=== PATIENT | female | born 1990 | race Caucasian/White ===

== ENCOUNTER 2018-04-22 07:12 | Inpatient (IN) | payer OTHER ==
[~2018-04-22] VITALS: Ht 177.8 cm; Wt 101.2 kg
[2018-04-22] VITALS (44 sets, daily range): BP systolic 15–139; BP diastolic 55–92
[~2018-04-22 07:12] MED LIST: DCS100C PO; HYDR-3720 PO; IBP800T PO; OXYC1TAB12 PO; PREN1TAB39 PO
[2018-04-22] MEDS ORDERED: OXYTOCIN/NORMAL SALINE 500 ML IV SCH ×2 (07:14→15:16)
[2018-04-22] MEDS ORDERED: D5 LR IV SOLUTION 1,000 ML IV SCH (07:14)
--- NOTE | 2018-04-22 07:23 | History & Physical ---
History and Physical Date Seen by Provider: Apr 22, 2018 Time Seen by Provider: 07:20 This patient is a 27-year-old A1 white female seen in my clinic yesterday and found with a DONALD of 47. Week prior to been 65. She is admitted now for induction of labor due to this oligohydramnios. She denies ruptured membranes or bleeding. She's had no problems with his to date. GBS culture was negative after 35 weeks gestation. Allergies are none Medications are vitamins Medical social and surgical histories are per the antepartum record HEENT exam is normal Neck is supple no lymphadenopathy no thyromegaly Abdomen is gravid soft nontender nondistended Extremities show clubbing or cyanosis. There is no Homans sign. Exam in clinic showed a cervix 3+ centimeters dilated over 50 percent effaced - 1 station or lower soft and intermediate and given a Hearn score of 9 Assessment and plan term at 37+ weeks' gestation with progressively decreasing DONALD to the point now of oligohydramnios with an DONALD yesterday and 47. Plan is for admission for induction of labor with Pitocin. We anticipate a vaginal delivery but plans in preparation would be in place for if needed. 37+ week gestation with oligohydramnios Allergies and Home Medications Allergies Coded Allergies: No Known Drug Allergies (Unverified , 07/28/11) Home Medications Docusate Sodium 100 Mg Cap, 100 MG PO BID Prescribed by: DENISE WILLIAMSON on 02/01/15 0740 Ibuprofen 800 Mg Tab, 800 MG PO Q6H Prescribed by: DENISE WILLIAMSON on 02/01/15 0740 Oxycodone Hcl/Acetaminophen 1 Tab Tablet, 1-2 TAB PO Q4H PRN for PAIN Prescribed by: DENISE WILLIAMSON on 02/01/15 0740 Vits W-Ca,Fe,Fa(<1MG) 1 Each Tablet, 1 EACH PO DAILY, (Reported) Patient Home Medication List Home Medication List Reviewed: Yes DENISE ARREOLA MD Apr 22, 2018 07:23
--- NOTE | 2018-04-22 07:32 | OB Bishop Score ---
Hearn Score 9 DENISE ARREOLA MD Apr 22, 2018 7:32 am
[2018-04-22 08:00] LABS: BASOPHILS % (AUTO) 0 % (0-10); EOSINOPHILS % (AUTO) 1 % (0-10); HEMATOCRIT 35 % (35-52); LYMPHOCYTES # (AUTO) 1.5 X 10^3 (1.0-4.0); LYMPHOCYTES % (AUTO) 27 % (12-44); MEAN CORPUSCULAR HEMOGLOBIN 32 PG (25-34); MEAN CORPUSCULAR HGB CONC 35 G/DL (32-36); MEAN CORPUSCULAR VOLUME 93 FL (80-99); MEAN PLATELET VOLUME 10.3 FL (7.4-10.4); MONOCYTES # (AUTO) 0.4 X 10^3 (0.0-1.0); MONOCYTES % (AUTO) 6 % (0-12); NEUTROPHILS # (AUTO) 3.6 X 10^3 (1.8-7.8); NEUTROPHILS % (AUTO) 66 % (42-75); PLATELET COUNT 196 10^3/uL (130-400); RED BLOOD COUNT 3.71 10^6/uL (4.35-5.85); RED CELL DISTRIBUTION WIDTH 12.6 % (10.0-14.5); WHITE BLOOD COUNT 5.5 10^3/uL (4.3-11.0)
[2018-04-22] MEDS ORDERED: SUFENTA 0.6MCG/ML BUPIVA 0.125 100 ML ONE (11:37)
[2018-04-22] MEDS ORDERED: BUPIVACAINE 0.25% 30 ML (SENSORCAINE) VIAL ONE (12:08)
[2018-04-22] MEDS ORDERED: fentaNYL INJECTION 100 MCG/2 ML AMP ONE (12:08)
[2018-04-22] MEDS ORDERED: LACTATED RINGERS 1,000 ML IV ONE (13:36)
[2018-04-22] MEDS ORDERED: NALOXONE 0.4 MG/ML 1 ML (NARCAN) VIAL IV PRN (13:45)
[2018-04-22] MEDS ORDERED: EPIDURAL (SUFENTA 0.6MCG/ML BUPIVA 0.125%) 100 ML BAG EPI SCH (13:45)
[2018-04-22] MEDS ORDERED: ONDANSETRON 4 MG/2 ML (SDV) Z0FRAN IV PRN (13:45)
[2018-04-22] MEDS ORDERED: CATHETER FLUSH 10 ML SYR IV PRN (13:45)
[2018-04-22] MEDS ORDERED: diphenhydrAMINE 50 MG/ML INJ (BENADRYL) IV PRN (13:45)
[2018-04-22] MEDS ORDERED: LIDOCAINE/EPI 2% 1:200,00 (XYLOCAINE) 10 ML VIAL ONE (14:21)
[2018-04-22] MEDS ORDERED: TETANUS,DIPTH,PERTUSS P/F (BOOSTRIX) 0.5 ML VIAL IM ONE (15:30)
[2018-04-22] MEDS ORDERED: oxyCODONE/APAP 5/325MG (PERCOCET 5) TABLET PO PRN (15:30)
[2018-04-22] MEDS ORDERED: BENZOCAINE/MENTHOL (DERMOPLAST) 56 ML CAN TP PRN (15:30)
[2018-04-22] MEDS: KETOROLAC 30 MG/ML VIAL IV SCH ×2 (16:34→21:30)
[2018-04-22] MEDS: DOCUSATE SODIUM 100 MG (COLACE) CAP PO SCH (20:17)
--- NOTE | 2018-04-22 21:10 | OPERATIVE REPORT ---
DATE OF SERVICE: 04/22/2018 The patient delivered by term spontaneous vaginal delivery, a viable male infant with Apgars of 8 and 9 at 1 and 5 minutes of life respectively, weight 6 pounds 1 ounce, time of 14:38 and a cord blood arterial pH 7.26. The infant delivered over an intact perineum under epidural analgesia. There was a nuchal cord that was easily released. The infant was dried and stimulated. When the cord was pulseless. It was doubly clamped, father cut the cord, the baby was passed to mom's abdomen. The was quickly pink, moved all extremities, had excellent tone and reflexes and a lusty cry. The placenta delivered spontaneously Norman. It was normal with a 3-vessel cord. The cervix, vagina, rectum, perineum were examined and found intact. Sponge and needle counts were correct on completion of delivery. The estimated blood loss was around 100 mL. The patient tolerated the delivery well and remained in the LDR for recovery. The baby remained with the mom. Job ID: [id number] DocumentID: [id number] Dictated Date: 04/22/2018 14:51:12 Microbiology Laboratory Manager Date: 04/22/2018 21:09:48 Dictated By: DENISE ARREOLA MD MTDD
--- NOTE | 2018-04-22 22:17 | Progress Note-Standard ---
Standard Progress Note Progress Notes/Assess & Plan Date Seen by Provider: Apr 22, 2018 Time Seen by Provider: 22:16 Progress/Assessment & Plan No C/O VSS AFB Vital Signs 04/22/18 20:15 Temp 98.5 Pulse 67 Resp 18 B/P (MAP) 116/76 (89) Pulse Ox 98 O2 Delivery Room Air FF below UMB / NT Ext - no c/c/e no homans A/P PPD <1 doing well routine care Final Diagnosis TSDENISE CRUZ MD Apr 22, 2018 10:17 pm
[2018-04-22] MEDS ORDERED: DOCU100C37 PO (22:19)
[2018-04-22] MEDS ORDERED: IBUP-1780 PO (22:19)
[2018-04-22] MEDS ORDERED: OXYC-471 PO (22:19)
--- NOTE | 2018-04-22 22:20 | Discharge Instructions ---
Discharge Instructions Discharge Medications New, Converted or Re-Newed RX: RX on Chart Patient Instructions Patient Instructions: as directed Return to The Hospital For: as directed Activity & Diet Discharge Diet: No Restrictions Activity as Tolerated: No Orders-Post D/C & Referrals Follow Up Appt: Call to make follow up appt. for patient in 4 weeks. Activity Per routine post vaginal delivery instructions. Diet as tolerated Patient may shower or tub bathe as desired. DENISE ARREOLA MD Apr 22, 2018 10:20 pm
[2018-04-22] MEDS ORDERED: IBUPROFEN 800 MG (MOTRIN) TAB PO ONE (22:26)
[2018-04-22] MEDS: IBUPROFEN 800 MG (MOTRIN) TAB PO SCH (22:38)
[2018-04-23 01:00] VITALS: BP 114/68
[2018-04-23] MEDS ORDERED: IBUPROFEN 800 MG (MOTRIN) TAB PO ONE ×2 (04:24→10:36)
[2018-04-23] MEDS: IBUPROFEN 800 MG (MOTRIN) TAB PO SCH ×4 (04:30→21:42)
[2018-04-23 04:31] VITALS: BP 121/74
[2018-04-23 09:00] VITALS: BP 115/62
--- NOTE | 2018-04-23 10:11 | Anesthesia-Regional Post-Op ---
Regional Patient Condition Mental Status: Alert, Oriented x3 Circulation: Same as Pre-Op Headache: Absent Sensation: Full Recovery Motor Block: Absent Post Op Complications Complications None Follow Up Care/Instructions Patient Instructions None needed. Anesthesia/Patient Condition Patient is doing well, no complaints, stable vital signs, no apparent adverse anesthesia problems. No complications reported per nursing. BROOKE WHITE CRNA Apr 23, 2018 10:11
[2018-04-23] MEDS: DOCUSATE SODIUM 100 MG (COLACE) CAP PO SCH ×2 (10:44→21:41)
[2018-04-23 13:15] VITALS: BP 108/67
[2018-04-23] MEDS ORDERED: DIBUCAINE (NUPERCAINAL) 1% OINT 30 GM ONE (16:35)
[2018-04-23] MEDS ORDERED: WITCH HAZEL(TUCKS) 40 EA JAR ONE (16:35)
[2018-04-23 16:45] VITALS: BP 113/65
[2018-04-23] MEDS ORDERED: WITCH HAZEL(TUCKS) 40 EA JAR TOP PRN ×2 (16:45→17:00)
[2018-04-23] MEDS ORDERED: DIBUCAINE (NUPERCAINAL) 1% OINT 30 GM TOP PRN (16:45)
--- NOTE | 2018-04-23 20:28 | Progress Note-Standard ---
Standard Progress Note Progress Notes/Assess & Plan Date Seen by Provider: Apr 23, 2018 Time Seen by Provider: 20:27 Progress/Assessment & Plan No C/O VSS AFB Vital Signs 04/22/18 20:15 Temp 98.5 Pulse 67 Resp 18 B/P (MAP) 116/76 (89) Pulse Ox 98 O2 Delivery Room Air FF below UMB / NT Ext - no c/c/e no homans A/P PPD <1 doing well routine care 04/23/18 No C/O VSS AFB Vital Signs Vital Signs Date Time Temp Pulse Resp B/P (MAP) Pulse Ox O2 Delivery O2 Flow Rate FiO2 04/23/18 16:45 98.2 72 18 113/65 (81) 98 Room Air 04/23/18 13:15 97.8 69 18 108/67 (81) 97 Room Air 04/23/18 09:00 97.6 64 18 115/62 (79) 98 Room Air 04/23/18 04:31 97.6 85 18 121/74 (90) 98 Room Air 04/23/18 01:00 97.9 61 18 114/68 (83) 98 Room Air I & O 04/23/18 07:00 Intake Total 2500 ml Output Total 300 ml Balance 2200 ml 04/22/18 20:15 Temp 98.5 Pulse 67 Resp 18 B/P (MAP) 116/76 (89) Pulse Ox 98 O2 Delivery Room Air FF below UMB / NT Ext - no c/c/e no homans A/P PPD 1 doing well routine care with home tomorrow. DENISE ARREOLA MD Apr 23, 2018 8:28 pm
[2018-04-23 21:40] VITALS: BP 117/75
[2018-04-24 04:15] VITALS: BP 110/71
[2018-04-24] MEDS: IBUPROFEN 800 MG (MOTRIN) TAB PO SCH ×2 (04:23→09:33)
--- NOTE | 2018-04-24 06:45 | Progress Note-Standard ---
Standard Progress Note Progress Notes/Assess & Plan Date Seen by Provider: Apr 24, 2018 Time Seen by Provider: 06:44 Progress/Assessment & Plan No C/O VSS AFB Vital Signs 04/22/18 20:15 Temp 98.5 Pulse 67 Resp 18 B/P (MAP) 116/76 (89) Pulse Ox 98 O2 Delivery Room Air FF below UMB / NT Ext - no c/c/e no homans A/P PPD <1 doing well routine care 04/23/18 No C/O VSS AFB Vital Signs Vital Signs Date Time Temp Pulse Resp B/P (MAP) Pulse Ox O2 Delivery O2 Flow Rate FiO2 04/23/18 16:45 98.2 72 18 113/65 (81) 98 Room Air 04/23/18 13:15 97.8 69 18 108/67 (81) 97 Room Air 04/23/18 09:00 97.6 64 18 115/62 (79) 98 Room Air 04/23/18 04:31 97.6 85 18 121/74 (90) 98 Room Air 04/23/18 01:00 97.9 61 18 114/68 (83) 98 Room Air I & O 04/23/18 07:00 Intake Total 2500 ml Output Total 300 ml Balance 2200 ml 04/22/18 20:15 Temp 98.5 Pulse 67 Resp 18 B/P (MAP) 116/76 (89) Pulse Ox 98 O2 Delivery Room Air FF below UMB / NT Ext - no c/c/e no homans A/P PPD 1 doing well routine care with home tomorrow. April 24, 2015 Patient is without complaint. She is ambulating, voiding, tolerating by mouth well, has good pain control. Patient denies chest pain, denies shortness of breath, denies nausea vomiting, and denies headache. Patient is ready for discharge home. Vital Signs Date Time Temp Pulse Resp B/P (MAP) Pulse Ox O2 Delivery O2 Flow Rate FiO2 04/24/18 04:15 96.5 64 18 110/71 (84) Room Air 04/23/18 21:40 96.9 75 18 117/75 (89) 99 Room Air 04/23/18 16:45 98.2 72 18 113/65 (81) 98 Room Air 04/23/18 13:15 97.8 69 18 108/67 (81) 97 Room Air 04/23/18 09:00 97.6 64 18 115/62 (79) 98 Room Air Vital signs are stable. Patient is afebrile. Fundus is firm below the umbilicus and nontender. Extremities show clubbing cyanosis. There is no Homans sign. There is some pretibial pitting edema that is normal. Assessment and plan day number 2 status post term spontaneous vaginal delivery doing well. Plan is for discharge home with follow-up in clinic Final Diagnosis T DENISE MURRELL MD Apr 24, 2018 6:45 am
[2018-04-24 07:22] VITALS: BP 105/71
[2018-04-24] MEDS: DOCUSATE SODIUM 100 MG (COLACE) CAP PO SCH (09:33)
[2018-04-24 09:50] VITALS: BP 105/71
== END 2018-04-24 09:50 | disposition home or self-care (01) | DRG 775 ==
LOC: LDRP 07:12
PROVIDERS: ADMIT Obstetrics & Gynecology; ATTEND Obstetrics & Gynecology
PROC: 10E0XZZ Delivery of Products of Conception, External Approach (ICD-10-PCS; principal; 2018-04-22)
PROC: 3E033VJ Introduction of Other Hormone into Peripheral Vein, Percutaneous Approach (ICD-10-PCS; 2018-04-22)
DX: O41.03X0 Oligohydramnios, third trimester, not applicable or unspecified (principal); O69.81X0 Labor and delivery complicated by cord around neck, without compression, not applicable or unspecified; Z37.0 Single live birth; Z3A.37 37 weeks gestation of pregnancy
CPT/HCPCS: 36415; 85025; 86850; 86900; 86901; 88307

== ENCOUNTER 2020-09-12 16:20 | Outpatient (CLI) | payer OTHER ==
[~2020-09-12] VITALS: Ht 177.8 cm; Wt 96.5 kg
[~2020-09-12 16:20] MED LIST changes: +DOCU100C37 PO; +IBUP-1780 PO; +OXYC-471 PO
--- NOTE | 2020-09-12 16:39 | NUR ---
DASIA DE LA CRUZ presented to unit via ambulation from ED with c/o increased vaginal discharge. Pt. weighed, gowned, voided, and to bed. EFHM and TOCO applied, VS taken. Pt. oriented to bed controls, call light, TV, heat, and A/C controls.
[2020-09-12 16:50] VITALS: BP 114/65
[2020-09-12 16:50] LABS: BILIRUBIN,URINE NEGATIVE (NEGATIVE); CLARITY,URINE SL CLOUDY; COLOR,URINE YELLOW; GLUCOSE, URINE (UA) NEGATIVE (NEGATIVE); KETONES,URINE NEGATIVE (NEGATIVE); LEUKOCYTE ESTERASE ,URINE 1+ (NEGATIVE); NITRITE,URINE NEGATIVE (NEGATIVE); PH,URINE 7.5 (5-9); PROTEIN,URINE NEGATIVE (NEGATIVE)
[2020-09-12 16:57] LABS: BACTERIA,URINE FEW /HPF; RBC,URINE RARE /HPF; WBC,URINE 0-2 /HPF
--- NOTE | 2020-09-12 16:58 | NUR ---
Nitrazine negative. no active leaking of fluid noted. SVE closed, thick, and posterior. white vaginal discharge noted on glove. pt reports having increased vaginal discharge x2 months. wears panty liner, with no D/C @ noc. denies vaginal itching, odor or bleeding. reports +FM. denies contractions @ time.
--- NOTE | 2020-09-12 17:03 | NUR ---
was called r/t admission c/o's. order received for wet prep.
--- NOTE | 2020-09-12 17:07 | NUR ---
wet prep specimen labeled and sent to lab. Addendum: 09/12/20 at 1725 by DARIO PICKARD RN correction to above note: specimen collected, labeled and sent to lab.
--- NOTE | 2020-09-12 17:13 | NUR ---
monitors dc'd. monitor tracing reviewed. no ctx's noted. FHR 140's. variability appropriate for gestation.
--- NOTE | 2020-09-12 17:30 | NUR ---
was called with wet prep results. dismissal orders received.
--- NOTE | 2020-09-12 17:45 | NUR ---
dismissal instructions given, verbalizes understanding. signature page signed, placed on chart.
--- NOTE | 2020-09-12 17:50 | NUR ---
pt ambulated to private vehicle with no sx's of distress noted.
--- NOTE | 2020-09-13 08:41 | Physician Query-Final Dx ---
SILKE TOLBERT 09/13/20 0841: Clinic Account Progress/Dx Physician Query: Please give diagnosis Please include # weeks gestation Date of Service Sep 12, 2020 at 16:20 DENISE ARREOLA MD 09/14/20 1046: Clinic Account Progress/Dx DIAGNOSIS: Diagnosis 24 weeks gestation with vaginal discharge Rupture membranes not confirmed SILKE TOLBERT Sep 13, 2020 08:41 DENISE ARREOLA MD Sep 14, 2020 10:46
== END 2020-09-12 17:50 | disposition home or self-care (01) ==
LOC: WSo 16:20 → LDRP 16:20 → WSo 17:50
PROVIDERS: ATTEND Obstetrics & Gynecology
DX: O26.892 Other specified pregnancy related conditions, second trimester (principal); Z3A.24 24 weeks gestation of pregnancy
CPT/HCPCS: 81000; 87088; 87210; 99214

== ENCOUNTER 2020-12-25 06:54 | Inpatient (IN) | payer OTHER ==
[~2020-12-25] VITALS: Ht 177.8 cm; Wt 106.1 kg
[2020-12-25] VITALS (34 sets, daily range): BP systolic 98–141; BP diastolic 56–84
--- NOTE | 2020-12-25 07:10 | NUR ---
DASIA DE LA CRUZ presented to unit via ambulatory from home, accompanied by self, with c/o LEAKING FLUIDS. DASIA DE LA CRUZ weighed, gowned, voided, and to bed. EFHM and TOCO applied, VS taken. DASIA DE LA CRUZ oriented to bed controls, call light, TV, heat, and A/C controls.
--- NOTE | 2020-12-25 08:16 | History & Physical ---
History and Physical Date Seen by Provider: Dec 25, 2020 Time Seen by Provider: 08:14 This patient is a 30-year-old 2 para 1 at 39 weeks gestation who presents with complaint of leaking fluid. She reports awakening in bed with soaked underwear. She she has continued to have some slight leakage as well she is starting to have contractions that had not been present before. She does feel baby move and her GBS culture was negative. She has had no problems with this . Allergies are none Medications are vitamins Medical social and surgical history is all per the antepartum record HEENT exam is normal Neck is supple no lymphadenopathy no thyromegaly Abdomen is gravid soft nontender nondistended Extremities show no clubbing or cyanosis. There is no Homans' sign. Pelvic exam yesterday in clinic showed a cervix almost 3 cm dilated 50% effaced -1 station vertex presentation recheck exam is pending Assessment and plan 39 weeks gestation with suspicion for contained rupture membranes. Patient is having occasional contraction we will start IV fluids and and his patient expectantly in anticipation of the vaginal delivery today 39-week gestation with PROM and early labor Allergies and Home Medications Allergies Coded Allergies: No Known Drug Allergies (Unverified , 07/28/11) Home Medications Vits W-Ca,Fe,Fa(<1MG) 1 Each Tablet, 1 EACH PO DAILY, (Reported) Patient Home Medication List Home Medication List Reviewed: Yes DENISE ARREOLA MD Dec 25, 2020 08:16
[2020-12-25] MEDS ORDERED: D5 LR IV SOLUTION 1,000 ML IV SCH (08:30)
[2020-12-25] MEDS ORDERED: OXYTOCIN PRE-MIX DRIP 500 ML IV SCH ×2 (08:30→14:15)
[2020-12-25 08:48] LABS: BASOPHILS % (AUTO) 0 % (0-10); EOSINOPHILS % (AUTO) 1 % (0-10); HEMATOCRIT 33 % (35-52); HEMOGLOBIN 11.2 g/dL (11.5-16.0); LYMPHOCYTES # (AUTO) 1.3 10^3/uL (1.0-4.0); LYMPHOCYTES % (AUTO) 22 % (12-44); MEAN CORPUSCULAR HEMOGLOBIN 32 pg (25-34); MEAN CORPUSCULAR HGB CONC 34 g/dL (32-36); MEAN CORPUSCULAR VOLUME 94 fL (80-99); MEAN PLATELET VOLUME 9.9 fL (9.0-12.2); MONOCYTES # (AUTO) 0.4 10^3/uL (0.0-1.0); MONOCYTES % (AUTO) 6 % (0-12); NEUTROPHILS # (AUTO) 4.1 10^3/uL (1.8-7.8); NEUTROPHILS % (AUTO) 70 % (42-75); PLATELET COUNT 181 10^3/uL (130-400); WHITE BLOOD COUNT 5.9 10^3/uL (4.3-11.0)
[2020-12-25] MEDS ORDERED: fentaNYL 2 mcg/ml BUPIVA 0.125 100 ML ONE (10:12)
[2020-12-25] MEDS ORDERED: METOCLOPRAMIDE INJ 10 MG/2 ML (REGLAN) IV PRN (12:30)
[2020-12-25] MEDS ORDERED: diphenhydrAMINE 50 MG/ML INJ (BENADRYL) IV PRN (12:30)
[2020-12-25] MEDS ORDERED: LACTATED RINGERS 1,000 ML IV SCH (12:30)
[2020-12-25] MEDS ORDERED: EPIDURAL (fentaNYL 2 MCG/ML BUPIVA 0.125%)100 ML BAG EPI SCH (12:30)
[2020-12-25] MEDS ORDERED: ONDANSETRON 4 MG/2 ML (SDV) Z0FRAN IV PRN (12:30)
[2020-12-25] MEDS ORDERED: NALOXONE 0.4 MG/ML 1 ML (NARCAN) VIAL IV PRN ×2 (12:30)
[2020-12-25] MEDS ORDERED: LIDOCAINE/EPI 2% 1:200,00 (XYLOCAINE) 10 ML VIAL ONE (13:05)
[2020-12-25] MEDS ORDERED: oxyCODONE/APAP 5/325MG (PERCOCET 5) TABLET PO PRN (14:15)
[2020-12-25] MEDS ORDERED: BENZOCAINE/MENTHOL (DERMOPLAST) 60 ML CAN TP PRN (14:15)
[2020-12-25] MEDS ORDERED: MEASLES,MUMPS,RUBELLA 1 EA INJ SC ONE (14:15)
[2020-12-25] MEDS ORDERED: ONDANSETRON 4 MG/2 ML (SDV) Z0FRAN IVP PRN (14:15)
[2020-12-25] MEDS ORDERED: TETANUS,DIPTH,PERTUSS P/F (BOOSTRIX) 0.5 ML VIAL IM ONE (14:15)
[2020-12-25] MEDS: KETOROLAC 30 MG/ML VIAL IVP SCH ×2 (15:05→21:36)
--- NOTE | 2020-12-25 15:30 | NUR ---
Pt transferred from WS-319 to WS-309 via wheel chair in stable condition accompanied by this rn, s/o, infant and belongings. Pt oriented to room, call light system, and ordering system. Call light within reach. No further needs at this time.
--- NOTE | 2020-12-25 21:28 | NUR ---
RN to room for assessment. IV converted to SL. VSS. Pt reports minimal bleeding and reports one 1cm clot in pad when up to bathroom. Denies pain, and denies any needs or concerns. Feeding record reviewed with parents, verbalize understanding.
[2020-12-25] MEDS: DOCUSATE SODIUM 100 MG (COLACE) CAP PO SCH (21:36)
--- NOTE | 2020-12-26 00:19 | OPERATIVE REPORT ---
DATE OF SERVICE: 12/25/2020 DELIVERY NOTE The patient delivered by term spontaneous vaginal delivery a viable male with Apgars of 9 and 9 at 1 and 5 minutes respectively, weight of 8 pounds 3 ounces, time of 13.4 and cord blood gas of 7.30. The was delivered over an intact perineum under epidural analgesia. The was bulb suctioned on delivery of the head. A single nuchal cord was easily released, and the delivery completed. Infant was bulb suctioned, dried and stimulated and then when the cord was pulseless, it was doubly clamped, father cut the cord, the baby was passed to mom's abdomen. The placenta delivered fairly promptly spontaneously Norman. It was normal with a 3-vessel cord. The cervix, vagina, rectum, and perineum were examined and found to be intact. Sponge and needle counts were correct on completion of the delivery and the post-delivery inspection. Estimated blood loss was around 200 mL. The patient remained in the LDR for recovery. The baby remained with the mom. Job ID: [id number] DocumentID: [id number] Dictated Date: 12/25/2020 22:23:37 [place] Converter Operator Date: 12/26/2020 00:18:59 Dictated By: DENISE ARREOLA MD
[2020-12-26] MEDS: KETOROLAC 30 MG/ML VIAL IVP SCH (02:58)
[2020-12-26 03:00] VITALS: BP 114/59
--- NOTE | 2020-12-26 07:20 | Anesthesia-Regional Post-Op ---
Regional Patient Condition Mental Status: Alert, Oriented x3 Circulation: Same as Pre-Op Headache: Absent Sensation: Full Recovery Motor Block: Absent Post Op Complications Complications None Follow Up Care/Instructions Patient Instructions None needed. Anesthesia/Patient Condition Patient is doing well, no complaints, stable vital signs, no apparent adverse anesthesia problems. No complications reported per nursing. BROOKE WHITE CRNA Dec 26, 2020 07:20
[2020-12-26 07:40] VITALS: BP 116/71
--- NOTE | 2020-12-26 08:06 | Progress Note ---
Standard Progress Note Progress Notes/Assess & Plan Date Seen by a Provider: Dec 26, 2020 Time Seen by a Provider: 08:04 Progress/Assessment & Plan Patient is ambulating, voiding, tolerating oral intake and has good pain control Vital signs were stable. Patient afebrile. The abdomen is benign. Fundus is firm below the umbilicus and nontender. Extremities show no clubbing or cyanosis. There is no Homans' sign. Assessment and plan day #1 status post term spontaneous vaginal delivery doing well. Plan is for routine convalescent care Vital Signs 12/26/20 03:00 Temp 36.2 Pulse 67 Resp 17 B/P (MAP) 114/59 (77) Pulse Ox 97 O2 Delivery Room Air Final Diagnosis 39-week spontaneous vaginal delivery DENISE ARREOLA MD Dec 26, 2020 08:06
[2020-12-26] MEDS ORDERED: DCS100C PO (08:07)
[2020-12-26] MEDS ORDERED: IBUP-1780 PO (08:07)
[2020-12-26] MEDS ORDERED: OXYC1TAB87 PO (08:07)
--- NOTE | 2020-12-26 08:08 | Discharge Inst-Surgical ---
Discharge Inst-Surgical Depart Medication/Instructions New, Converted or Re-Newed RX: RX on Chart Consults/Follow Up Patient Instructions: As directed Orders & Referrals Follow Up Appt: Call to make follow up appt. for patient in 4 weeks. Activity Per routine post vaginal delivery instructions. Please call in RX to patient pharmacy. Diet as tolerated Patient may shower or tub bathe as desired. Activity Activity as Tolerated: No Diet Discharge Diet: No Restrictions DENISE ARREOLA MD Dec 26, 2020 08:08
[2020-12-26] MEDS ORDERED: IBUPROFEN 800 MG (MOTRIN) TAB PO ONE (09:01)
[2020-12-26] MEDS: DOCUSATE SODIUM 100 MG (COLACE) CAP PO SCH ×2 (09:06→20:39)
[2020-12-26] MEDS: IBUPROFEN 800 MG (MOTRIN) TAB PO SCH ×3 (09:10→20:39)
--- NOTE | 2020-12-26 09:13 | NUR ---
AM shift assessment completed at this time, see interventions. Vital signs obtained by Nursing Students. Plan of care reviewed with patient. Patient verbalizes understanding and questions answered. Scheduled Motrin and Colace PO given.
[2020-12-26 12:20] VITALS: BP 119/67
--- NOTE | 2020-12-26 13:05 | NUR ---
Report from Graciela Lizarraga RN
[2020-12-26 15:05] VITALS: BP 115/59
[2020-12-26 20:39] VITALS: BP 124/67
[2020-12-27 02:38] VITALS: BP 120/59
[2020-12-27] MEDS: IBUPROFEN 800 MG (MOTRIN) TAB PO SCH ×2 (02:38→09:01)
--- NOTE | 2020-12-27 07:38 | Progress Note ---
Standard Progress Note Progress Notes/Assess & Plan Date Seen by a Provider: Dec 27, 2020 Time Seen by a Provider: 07:37 Progress/Assessment & Plan Patient is ambulating, voiding, tolerating oral intake and has good pain control Vital signs were stable. Patient afebrile. The abdomen is benign. Fundus is firm below the umbilicus and nontender. Extremities show no clubbing or cyanosis. There is no Homans' sign. Assessment and plan day #1 status post term spontaneous vaginal delivery doing well. Plan is for routine convalescent care Vital Signs 12/26/20 03:00 Temp 36.2 Pulse 67 Resp 17 B/P (MAP) 114/59 (77) Pulse Ox 97 O2 Delivery Room Air December 27, 2020 Patient is without complaint. She is ambulating, voiding, tolerating oral intake well and has good pain control. Patient is requesting discharge home Vital Signs Date Time Temp Pulse Resp B/P (MAP) Pulse Ox O2 Delivery O2 Flow Rate FiO2 12/27/20 02:38 36.8 84 18 120/59 (79) 98 Room Air 12/26/20 20:39 36.4 77 18 124/67 (86) 97 Room Air 12/26/20 15:05 36.7 79 18 115/59 (77) 97 Room Air 12/26/20 12:20 36.5 85 18 119/67 (84) 97 Room Air 12/26/20 07:40 36.5 71 18 116/71 (86) 97 Room Air Vital signs are stable patient is afebrile. Fundus is firm below the umbilicus and nontender. Extremities show no clubbing or cyanosis. There is no Homans' sign. Assessment and plan day #2 doing well. Plan is for discharge home Final Diagnosis 39-week spontaneous vaginal delivery DENISE ARREOLA MD Dec 27, 2020 07:38
[2020-12-27] MEDS: DOCUSATE SODIUM 100 MG (COLACE) CAP PO SCH (09:00)
[2020-12-27 09:02] VITALS: BP 138/77
--- NOTE | 2020-12-27 10:24 | NUR ---
Discharge instructions explained to pt with copy provided to pt. Narcotic script given to pt. Pt denies Ibuprofen or Colace script to be called in, states she has both at home. Pt notified of follow up appt. Pt denies questions or concerns. Pt verbalizes understanding of instructions and signs to verify.
--- NOTE | 2020-12-27 10:55 | NUR ---
Pt ambulates off unit to private vehicle accompanied by RN, S.O., and , with all personal belongings. No s/s of distress noted.
[2020-12-30] MEDS ORDERED: IBUPROFEN 800 MG (MOTRIN) TAB PO SCH
== END 2020-12-27 10:55 | disposition home or self-care (01) | DRG 807 ==
LOC: LDRP 06:54 → WSo 06:54 → LDRP 08:30
PROVIDERS: ADMIT Obstetrics & Gynecology; ATTEND Obstetrics & Gynecology
PROC: 10E0XZZ Delivery of Products of Conception, External Approach (ICD-10-PCS; principal; 2020-12-25)
DX: O80 Encounter for full-term uncomplicated delivery (principal); Z37.0 Single live birth; Z3A.39 39 weeks gestation of pregnancy; Z20.822 Contact with and (suspected) exposure to COVID-19
CPT/HCPCS: 36415; 85025; 87635; 99212